=== PATIENT | male | born 1970 | race Caucasian/White ===

== ENCOUNTER 2019-05-11 19:10 | Emergency (ER) | payer SELFPAY ==
[2019-05-11] MEDS ORDERED: EPINEPHrine 0.3 MG/0.3 ML Pen Autoinjector IM ONE (19:12)
[2019-05-11] MEDS ORDERED: EPINEPHrine 1 MG/1 ML Amp SUBCUT ONE (19:12)
[2019-05-11 19:25] VITALS: BP 142/99
--- NOTE | 2019-05-11 20:00 | EDM.PDOC ---
ED HPI GENERAL MEDICAL PROBLEM - General Chief Complaint: Allergic Reaction Stated Complaint: allergic reation Time Seen by Provider: 05/11/19 19:10 Source of Information: Reports: Patient History Limitations: Reports: No Limitations - History of Present Illness INITIAL COMMENTS - FREE TEXT/NARRATIVE: Patient is a 48-year-old was brought in by his girlfriend with chief complaint of neck swelling and shortness of breath patient is allergic to bees but denies getting stung states that this happened earlier today and progressively got worse, Onset: Today, Sudden Duration: Hour(s): Location: Reports: Generalized Severity: Moderate Improves with: Reports: None Context: Reports: Other (Drug reaction) Associated Symptoms: Reports: No Other Symptoms Treatments [employer]ES [employer]ER: Reports: NSAIDS - Related Data Allergies Allergy/AdvReac Type Severity Reaction Status Date / Time bee venom protein (honey bee) Allergy Swelling Verified 05/11/19 19:20 Home Meds: Home Meds Lisinopril/Hydrochlorothiazide [Lisinopril-Hctz 20-25 mg Tab] 1 tab PO DAILY 08/28 [History] Past Medical History Cardiovascular History: Reports: Hypertension ED ROS ALLERGIC REACTION - Review of Systems Review Of Systems: See Below Constitutional: Reports: No Symptoms HEENT: Reports: No Symptoms Respiratory: Reports: No Symptoms Cardiovascular: Reports: No Symptoms Endocrine: Reports: No Symptoms GI/Abdominal: Reports: No Symptoms : Reports: No Symptoms Musculoskeletal: Reports: No Symptoms Skin: Reports: No Symptoms Neurological: Reports: No Symptoms Psychiatric: Reports: No Symptoms Hematologic/Lymphatic: Reports: No Symptoms Immunologic: Reports: No Symptoms ED EXAM GENERAL NO PERIP PULSE - Physical Exam Exam: See Below Exam Limited By: No Limitations General Appearance: Alert, WD/WN, No Apparent Distress Ears: Normal External Exam, Normal Canal, Hearing Grossly Normal, Normal TMs Throat/Mouth: Inflammation Head: Atraumatic, Normocephalic Neck: Supple Respiratory/Chest: No Respiratory Distress, Lungs Clear, Normal Breath Sounds, No Accessory Muscle Use, Chest Non-Tender Cardiovascular: Normal Peripheral Pulses, Regular Rate, Rhythm, No Edema, No Gallop, No JVD, No Murmur, No Rub GI/Abdominal: Normal Bowel Sounds, Soft, Non-Tender, No Organomegaly, No Distention, No Abnormal Bruit, No Mass Back Exam: Normal Inspection, Full Range of Motion, NT Extremities: Normal Inspection, Normal Range of Motion, Non-Tender, Normal Capillary Refill, No Pedal Edema Neurological: Alert, Oriented, CN II-XII Intact, Normal Cognition, Normal Gait, Normal Reflexes, No Motor/Sensory Deficits Psychiatric: Normal Affect, Normal Mood Course - Vital Signs Last Recorded V/S: Last Vital Signs Temp Pulse 110 H 05/11/19 20:00 Resp 16 05/11/19 20:00 BP 142/99 H 05/11/19 19:10 Pulse Ox 97 05/11/19 20:00 - Orders/Labs/Meds Meds: Medications Discontinued Medications Generic Name Dose Route Start Last Admin Trade Name Magali PRN Reason Stop Dose Admin Epinephrine HCl 0.3 mg 05/11/19 19:12 05/11/19 19:19 Adrenalin SUBCUT 05/11/19 19:13 Not Given ONETIME ONE Epinephrine HCl 0.3 mg 05/11/19 19:12 05/11/19 19:12 Epipen IM 05/11/19 19:13 0.3 mg ONETIME ONE Administration Departure - Departure Time of Disposition: 19:58 Disposition: Home, Self-Care 01 Condition: Fair Clinical Impression: Allergic reaction - Discharge Information *PRESCRIPTION DRUG MONITORING PROGRAM REVIEWED*: No *COPY OF PRESCRIPTION DRUG MONITORING REPORT IN PATIENT SOHEILA: No (`````````````` ```````````````````````````````````````````````````````````````````````````````` ```````````````````````````````````````````````````````````````````````````````` ```````````````````````````````````````````````````````````````````````````````` ```````````````````````````````````````````````````````````````````````) Instructions: Epinephrine injection, Angioedema Referrals: PCP,None [Primary Care Provider] - Care Plan Goals: Take 2 tabs of Prednisone 10 mg twice a day for 5 days.
[2019-05-11 21:00] VITALS: PULSE 110
== END 2019-05-11 20:15 | disposition home or self-care (01) ==
LOC: LL.ED 19:10
DX: T78.40XA Allergy, unspecified, initial encounter (principal); I10 Essential (primary) hypertension; Z79.899 Other long term (current) drug therapy; Z91.030 Bee allergy status
CPT/HCPCS: 96372; 99284; A9270-GY

== ENCOUNTER 2021-02-19 16:53 | Emergency (ER) | payer SELFPAY ==
[2021-02-19] MEDS ORDERED: Sodium Chloride 0.9% 10 ML Syringe FLUSH PRN (17:22)
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
[2021-02-19] MEDS: Sodium Chloride 0.9% 1,000 ML IV ONE (17:56)
[2021-02-19 18:35] LABS: ANION GAP 14.5 meq/L (7-15)
== END 2021-02-19 19:20 | disposition home or self-care (01) ==
LOC: LL.ED 16:53
DX: K70.10 Alcoholic hepatitis without ascites (principal); F10.129 Alcohol abuse with intoxication, unspecified; I10 Essential (primary) hypertension; Y90.5 Blood alcohol level of 100-119 mg/100 ml; Z91.030 Bee allergy status; Z79.899 Other long term (current) drug therapy; Z72.0 Tobacco use
CPT/HCPCS: 70450; 71045; 80053; 80307; 82140; 83690; 83735; 84484; 85025; 85610; 99284; 99284-25; J7030

== ENCOUNTER 2021-04-21 00:58 | Emergency (ER) | payer SELFPAY ==
[2021-04-21] MEDS ORDERED: GI Cocktail Oral Solution 30 ML PO ONE (01:05)
[2021-04-21] MEDS ORDERED: Pantoprazole 40 MG Vial IVPUSH ONE (01:44)
[2021-04-21] MEDS ORDERED: Famotidine 20 MG/2 ML SDV IVPUSH ONE (01:45)
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
[2021-04-21 01:56] LABS: ANION GAP 17.7 meq/L (7-15); CHLORIDE,CL 108 mmol/L (98-107); SODIUM,NA 148 mmol/L (136-145)
[2021-04-21] MEDS ORDERED: Sodium Chloride 0.9% 1,000 ML IV ONE (02:05)
[2021-04-21] MEDS ORDERED: Iopamidol 755 Mg/ML 100 ML Bottle IVPUSH STA (02:16)
[2021-04-21] MEDS ORDERED: LORazepam 2 MG/ML SDV IVPUSH ONE (02:17)
[2021-04-21] MEDS ORDERED: LORazepam 2 MG/ML SDV IVPUSH PRN (02:18)
[2021-04-21] MEDS: Sodium Chloride 0.45% 1,000 ML IV SCH ×2 (02:47→04:38)
[2021-04-21 10:23] LABS: BARBITURATE SCREEN,URINE NEGATIVE (NEGATIVE); BENZODIAZEPINES SCREEN,URINE NEGATIVE (NEGATIVE); EDDP,URINE SCREEN NEGATIVE (NEGATIVE); TCA SCREEN,URINE NEGATIVE (NEGATIVE); THC SCREEN,URINE 50 NG/ML NEGATIVE (NEGATIVE)
[2021-04-21 10:25] LABS: BUPRENORPHINE SCREEN,URINE NEGATIVE (NEGATIVE)
== END 2021-04-21 09:20 | disposition home or self-care (01) ==
LOC: LL.ED 00:58
DX: R07.89 Other chest pain (principal); F10.129 Alcohol abuse with intoxication, unspecified; I10 Essential (primary) hypertension; Z79.899 Other long term (current) drug therapy; Y90.5 Blood alcohol level of 100-119 mg/100 ml
CPT/HCPCS: 36415; 71275; 80053; 80305-QW; 80307; 81001; 82140; 83735; 83880; 84484; 85025; 85379; 85610; 93010; 96374; 96375; 99284; 99285-25; C9113; J3490; Q9967

== ENCOUNTER 2021-08-22 16:57 | Emergency (ER) | payer BC, OTHER ==
[2021-08-22] MEDS ORDERED: traMADol 50 MG Tab PO ONE ×3 (17:51→17:57)
== END 2021-08-22 18:10 | disposition home or self-care (01) ==
LOC: LL.ED 16:57
DX: S89.91XA Unspecified injury of right lower leg, initial encounter (principal); F10.220 Alcohol dependence with intoxication, uncomplicated; I10 Essential (primary) hypertension; Z72.0 Tobacco use; Z91.030 Bee allergy status; Z79.899 Other long term (current) drug therapy; W00.9XXA Unspecified fall due to ice and snow, initial encounter
CPT/HCPCS: 73562-RT; 99283; A9270-GY

== ENCOUNTER 2021-10-14 04:50 | Emergency (ER) | payer BC, MEDICAID ==
[2021-10-14] MEDS ORDERED: Sodium Chloride 0.9% 10 ML Syringe FLUSH PRN (05:04)
[2021-10-14] MEDS ORDERED: methylPREDNISolone Sodium Succinate 125 MG/2 ML SDV IVPUSH ONE (05:29)
[2021-10-14] MEDS ORDERED: cefTRIAXone 2 GM Vial IVPUSH ONE (05:30)
[2021-10-14 05:48] LABS: ANION GAP 12.1 meq/L (7-15); CHLORIDE,CL 104 mmol/L (98-107); SODIUM,NA 142 mmol/L (136-145)
[2021-10-14] MEDS ORDERED: Sodium Chloride 0.9% 1,000 ML IV SCH (06:15)
[2021-10-14 06:48] LABS: PTT,PARTIAL THROMBOPLSTIN TIME 26.1 SEC (23.6-29.8)
== END 2021-10-14 08:26 | disposition home or self-care (01) ==
LOC: LL.ED 04:50
DX: J44.1 Chronic obstructive pulmonary disease with (acute) exacerbation (principal); F10.129 Alcohol abuse with intoxication, unspecified; I10 Essential (primary) hypertension; F17.200 Nicotine dependence, unspecified, uncomplicated; Z91.030 Bee allergy status; Z79.899 Other long term (current) drug therapy
CPT/HCPCS: 36415; 71045; 80053; 80307; 83735; 83880; 84100; 84443; 84484; 85025; 85610; 85730; 86140; 93005; 93010; 94761; 96374; 96375; 99284; 99285-25; J0696; J2930; J3490; J7030

== ENCOUNTER 2021-11-07 21:24 | Emergency (ER) | payer MEDICAID | END 2021-11-07 22:30 | disposition left against medical advice (07) | LOC: LL.ED 21:24 | DX: Z53.21 Procedure and treatment not carried out due to patient leaving prior to being seen by health care provider (principal) ==